=== PATIENT | male | born 1985 ===

== ENCOUNTER 2020-07-20 15:59 | Emergency (ER) | payer SELFPAY ==
[2020-07-20] MEDS ORDERED: Dexamethasone 10 MG/ML VIAL ONE (16:29)
[2020-07-20] MEDS ORDERED: cefTRIAXone\\ROCEPHIN 1 GM VIAL ONE (16:29)
--- NOTE | 2020-07-20 16:52 | RAD ---
EXAM: CHEST ONE VIEW HISTORY: Cough. COMPARISON: None FINDINGS: Cardiac silhouette is magnified by projection but at the upper limits normal in size. The pulmonary v asculature is within normal limits. There is a increased density in the retrocardiac region left lung base, but this has an appearance most suggestive of superimposition of vascular structures. No d efinite consolidation is seen, and there is no pleural effusion. The osseous structures are intact. IMPRESSION: No acute cardiopulmonary process.
[2020-07-20 16:59] LABS: #Eosinphils 0.2 thou/uL (0.0-0.7); #Lymphocytes 1.2 thou/uL (1.20-3.40); #Monocytes 0.5 thou/uL (0.11-0.59); #Neutrophils 4.1 thou/uL (1.40-6.50); %Basophils 0.3 % (0.0-1.0); %Eosinophils 2.9 % (0.0-10.0); %Lymphocytes 20.2 % (21.0-51.0); %Monocytes 8.3 % (0.0-10.0); %Neutrophils 68.4 % (42.0-75.0); Hemoglobin 16.3 g/dL (14.0-18.0); Mean Corpuscular HGB CONC 34.4 g/dL (32.0-36.0); Mean Corpuscular Hemoglobin 30.7 pg (27.0-31.0); Mean Corpuscular Volume 89.2 fL (78.0-98.0); Mean Platelet Volume 8.4 fL (7.4-10.4); Platelet Count 174 thou/uL (130-400); RBC Distribution Width 11.5 % (11.5-14.5)
[2020-07-20 17:20] LABS: ALT (SGPT) 86 U/L (8-55); AST (SGOT) 47 U/L (5-34); Albumin 4.8 g/dL (3.5-5.0); Alkaline Phosphatase 79 U/L (40-110); Anion Gap 17 mmol/L (10-20); BUN (Urea Nitrogen) 10 mg/dL (8.9-20.6); Bilirubin, Total 0.8 mg/dL (0.2-1.2); CK (CPK) 92 U/L (30-200); Calc. Creatinine Clearance 0 mL/min (70-130); Carbon Dioxide 21 mmol/L (22-29); Chloride 104 mmol/L (98-107); Estimated GFR-MDRD 78; Globulin 2.9 g/dL (2.4-3.5); Glucose 95 mg/dL (70-105); Lipase 11 U/L (8-78); Potassium 3.8 mmol/L (3.5-5.1); Protein, Total 7.7 g/dL (6.0-8.3); Sodium 138 mmol/L (136-145)
== END 2020-07-20 17:59 | disposition home or self-care (01) ==
LOC: ERS 15:59
DX: J18.9 Pneumonia, unspecified organism (principal)
CPT/HCPCS: 71045; 80053; 82550; 83690; 84484; 85025; 85379; 93005; 96365; 96375; J0696; J1100